=== PATIENT | female | born 1940 | race Caucasian/White ===

== ENCOUNTER 2020-09-19 08:41 | Inpatient (IN) ==
[2020-09-19] MEDS ORDERED: Acetaminophen 325 MG TABLET PO PRN (21:41)
[2020-09-19] MEDS ORDERED: *HR* OxyCODONE Immed Rel 5 MG TABLET PO PRN (21:43)
[2020-09-19] MEDS: Triamcinolone Acet 0.1% CRM 15 GM TUBE TP SCH (22:52)
[2020-09-20] MEDS: *HR* Enoxaparin 40 MG/0.4 ML SYRINGE SQ SCH (02:14)
[2020-09-20 05:55] LABS: Basophils # 0.1 K/mcL (0.0-0.2); Basophils % 0.4 %; Eosinophils # 0.4 K/mcL (0.0-0.6); Eosinophils % 2.9 %; Hematocrit 26.1 % (35.3-44.9); Hemoglobin 8.5 g/dL (11.5-15.4); Immature Granulocytes % 1.9 % (0-4); Lymphocytes # 2.6 K/mcL (0.6-4.6); Lymphocytes % 19.5 %; Mean Corpuscular HGB Conc 32.6 g/dL (31.6-35.5); Mean Corpuscular Hemoglobin 29.8 pg (28.0-33.3); Mean Corpuscular Volume 91.6 fL (83.0-100.0); Monocytes # 1.2 K/mcL (0.0-1.3); Monocytes % 9.4 %; Neutrophils # 8.7 K/mcL (1.6-8.9); Platelet Count 358 K/mcL (140-400); Red Blood Count 2.85 M/mcL (3.82-4.97); Red Cell Distribution Width 14.1 % (11.5-14.5); Segmented Neutrophils % 65.9 %; White Blood Count 13.2 K/mcL (4.3-11.1)
[2020-09-20 06:10] LABS: BUN/Creatinine Ratio 34 (6-26); Blood Urea Nitrogen 28 mg/dL (8-23); Calcium 8.2 mg/dL (8.6-10.3); Carbon Dioxide 28 mEq/L (23-29); Chloride 106 mEq/L (98-107); Glucose 94 mg/dL (70-105); Osmolality,Calculated 293 (280-300); Potassium 4.4 mEq/L (3.5-5.1); Sodium 139 mEq/L (136-145); eGFR For African Americans > 60 (> 60); eGFR For Non-African Americans > 60 (> 60)
[2020-09-20] MEDS ORDERED: Aspirin Enteric Coated 325 MG Tablet PO SCH (09:00)
[2020-09-20] MEDS: amLODIPine 5 MG TABLET PO SCH (09:52)
[2020-09-20] MEDS: COD LIVER OIL PO SCH (09:52)
[2020-09-20] MEDS: Cholecalciferol (D-3) 1,000 UNIT (25MCG) TABLET PO SCH (09:52)
[2020-09-20] MEDS: polyethylene glycoL 3350 17 GM POWD.PACK PO SCH (09:52)
[2020-09-20] MEDS: [UNRECOGNIZED DRUG - OTHER] PO SCH (09:53)
[2020-09-20] MEDS: Triamcinolone Acet 0.1% CRM 15 GM TUBE TP SCH ×2 (09:53→21:31)
[2020-09-20] MEDS: *HR* HYDROcodone/Acet 5/325 mg TABLET PO PRN ×2 (12:13→21:29)
[2020-09-21] MEDS: *HR* HYDROcodone/Acet 5/325 mg TABLET PO PRN ×3 (05:33→21:41)
[2020-09-21] MEDS: *HR* Enoxaparin 40 MG/0.4 ML SYRINGE SQ SCH (05:34)
[2020-09-21] MEDS: Triamcinolone Acet 0.1% CRM 15 GM TUBE TP SCH ×2 (09:31→21:41)
[2020-09-21] MEDS: amLODIPine 5 MG TABLET PO SCH (09:32)
[2020-09-21] MEDS: COD LIVER OIL PO SCH (09:33)
[2020-09-21] MEDS: polyethylene glycoL 3350 17 GM POWD.PACK PO SCH (09:33)
[2020-09-21] MEDS: [UNRECOGNIZED DRUG - OTHER] PO SCH (09:33)
[2020-09-21] MEDS: Cholecalciferol (D-3) 1,000 UNIT (25MCG) TABLET PO SCH (09:33)
[2020-09-22] MEDS: *HR* HYDROcodone/Acet 5/325 mg TABLET PO PRN ×2 (06:07→21:19)
[2020-09-22] MEDS: *HR* Enoxaparin 40 MG/0.4 ML SYRINGE SQ SCH (06:07)
[2020-09-22] MEDS: [UNRECOGNIZED DRUG - OTHER] PO SCH (08:09)
[2020-09-22] MEDS: COD LIVER OIL PO SCH (08:10)
[2020-09-22] MEDS: amLODIPine 5 MG TABLET PO SCH (08:44)
[2020-09-22] MEDS: Cholecalciferol (D-3) 1,000 UNIT (25MCG) TABLET PO SCH (08:44)
[2020-09-22] MEDS: polyethylene glycoL 3350 17 GM POWD.PACK PO SCH (08:44)
[2020-09-22] MEDS: Triamcinolone Acet 0.1% CRM 15 GM TUBE TP SCH ×2 (10:50→22:14)
[2020-09-23] MEDS: *HR* Enoxaparin 40 MG/0.4 ML SYRINGE SQ SCH (04:23)
[2020-09-23] MEDS: *HR* HYDROcodone/Acet 5/325 mg TABLET PO PRN ×3 (04:23→21:40)
[2020-09-23 06:14] LABS: Hematocrit 24.8 % (35.3-44.9); Mean Corpuscular HGB Conc 32.3 g/dL (31.6-35.5); Mean Corpuscular Hemoglobin 29.7 pg (28.0-33.3); Mean Corpuscular Volume 92.2 fL (83.0-100.0); Mean Platelet Volume 9.8 fL (9.4-12.4); Platelet Count 413 K/mcL (140-400); Red Blood Count 2.69 M/mcL (3.82-4.97); White Blood Count 12.3 K/mcL (4.3-11.1)
[2020-09-23 06:37] LABS: BUN/Creatinine Ratio 36 (6-26); Blood Urea Nitrogen 29 mg/dL (8-23); Calcium 8.3 mg/dL (8.6-10.3); Carbon Dioxide 28 mEq/L (23-29); Chloride 105 mEq/L (98-107); Glucose 102 mg/dL (70-105); Magnesium 1.9 mg/dL (1.6-2.6); Osmolality,Calculated 292 (280-300); Potassium 3.9 mEq/L (3.5-5.1); Sodium 138 mEq/L (136-145); eGFR For African Americans > 60 (> 60); eGFR For Non-African Americans > 60 (> 60)
[2020-09-23] MEDS: amLODIPine 5 MG TABLET PO SCH (08:31)
[2020-09-23] MEDS: Cholecalciferol (D-3) 1,000 UNIT (25MCG) TABLET PO SCH (08:31)
[2020-09-23] MEDS: polyethylene glycoL 3350 17 GM POWD.PACK PO SCH (08:32)
[2020-09-23] MEDS: Triamcinolone Acet 0.1% CRM 15 GM TUBE TP SCH ×2 (08:36→21:40)
[2020-09-23] MEDS: [UNRECOGNIZED DRUG - OTHER] PO SCH (08:39)
[2020-09-23] MEDS: COD LIVER OIL PO SCH (08:39)
[2020-09-23 13:20] LABS: % Iron Saturation 18 % (15-50); Iron 44 mcg/dL (50-170); Transferrin 178 mg/dL (203-362)
[2020-09-23 13:46] LABS: Folate 17.6 ng/mL (3.0-16.0)
[2020-09-24] MEDS: *HR* HYDROcodone/Acet 5/325 mg TABLET PO PRN ×2 (06:26→21:14)
[2020-09-24] MEDS: *HR* Enoxaparin 40 MG/0.4 ML SYRINGE SQ SCH (06:27)
[2020-09-24] MEDS: amLODIPine 5 MG TABLET PO SCH (08:06)
[2020-09-24] MEDS: polyethylene glycoL 3350 17 GM POWD.PACK PO SCH (08:06)
[2020-09-24] MEDS: Cholecalciferol (D-3) 1,000 UNIT (25MCG) TABLET PO SCH (08:07)
[2020-09-24] MEDS: Triamcinolone Acet 0.1% CRM 15 GM TUBE TP SCH ×2 (08:07→21:14)
[2020-09-24] MEDS: COD LIVER OIL PO SCH (10:12)
[2020-09-24] MEDS: [UNRECOGNIZED DRUG - OTHER] PO SCH (10:12)
[2020-09-24] MEDS ORDERED: Hydrocortisone 1% OINT 28 GM TUBE TP PRN (10:36)
[2020-09-24] MEDS ORDERED: NON-FORMULARY MEDICATION 1 EACH EACH (Alendronate Sodium [Fosamax] 70 MG Tablet) PO SCH (19:12)
[2020-09-25] MEDS: *HR* Enoxaparin 40 MG/0.4 ML SYRINGE SQ SCH (05:57)
[2020-09-25] MEDS: *HR* HYDROcodone/Acet 5/325 mg TABLET PO PRN ×3 (07:50→19:03)
[2020-09-25] MEDS: Cholecalciferol (D-3) 1,000 UNIT (25MCG) TABLET PO SCH (07:50)
[2020-09-25] MEDS: polyethylene glycoL 3350 17 GM POWD.PACK PO SCH (07:50)
[2020-09-25] MEDS: COD LIVER OIL PO SCH (07:51)
[2020-09-25] MEDS: amLODIPine 5 MG TABLET PO SCH (07:51)
[2020-09-25] MEDS: [UNRECOGNIZED DRUG - OTHER] PO SCH (07:51)
[2020-09-25] MEDS: Triamcinolone Acet 0.1% CRM 15 GM TUBE TP SCH ×2 (07:51→21:39)
[2020-09-26] MEDS: *HR* HYDROcodone/Acet 5/325 mg TABLET PO PRN ×4 (05:21→20:41)
[2020-09-26] MEDS: *HR* Enoxaparin 40 MG/0.4 ML SYRINGE SQ SCH (05:22)
[2020-09-26] MEDS: polyethylene glycoL 3350 17 GM POWD.PACK PO SCH (09:39)
[2020-09-26] MEDS: Cholecalciferol (D-3) 1,000 UNIT (25MCG) TABLET PO SCH (09:39)
[2020-09-26] MEDS: amLODIPine 5 MG TABLET PO SCH (09:39)
[2020-09-26] MEDS: Triamcinolone Acet 0.1% CRM 15 GM TUBE TP SCH ×2 (09:43→21:48)
[2020-09-26] MEDS: COD LIVER OIL PO SCH (10:26)
[2020-09-26] MEDS: [UNRECOGNIZED DRUG - OTHER] PO SCH (10:26)
[2020-09-27] MEDS: *HR* Enoxaparin 40 MG/0.4 ML SYRINGE SQ SCH (05:01)
[2020-09-27] MEDS: *HR* HYDROcodone/Acet 5/325 mg TABLET PO PRN ×3 (05:03→21:09)
[2020-09-27] MEDS: COD LIVER OIL PO SCH (08:23)
[2020-09-27] MEDS: Triamcinolone Acet 0.1% CRM 15 GM TUBE TP SCH ×2 (08:23→21:12)
[2020-09-27] MEDS: polyethylene glycoL 3350 17 GM POWD.PACK PO SCH (08:23)
[2020-09-27] MEDS: [UNRECOGNIZED DRUG - OTHER] PO SCH (08:23)
[2020-09-27] MEDS: Cholecalciferol (D-3) 1,000 UNIT (25MCG) TABLET PO SCH (08:25)
[2020-09-27] MEDS: amLODIPine 5 MG TABLET PO SCH (08:25)
[2020-09-28] MEDS: *HR* HYDROcodone/Acet 5/325 mg TABLET PO PRN ×3 (05:47→18:39)
[2020-09-28] MEDS: Cholecalciferol (D-3) 1,000 UNIT (25MCG) TABLET PO SCH (05:48)
[2020-09-28] MEDS: amLODIPine 5 MG TABLET PO SCH (05:48)
[2020-09-28] MEDS: *HR* Enoxaparin 40 MG/0.4 ML SYRINGE SQ SCH (05:50)
[2020-09-28] MEDS: Triamcinolone Acet 0.1% CRM 15 GM TUBE TP SCH ×2 (05:52→22:25)
[2020-09-28] MEDS: [UNRECOGNIZED DRUG - OTHER] PO SCH (05:52)
[2020-09-28] MEDS: polyethylene glycoL 3350 17 GM POWD.PACK PO SCH (05:52)
[2020-09-28] MEDS: COD LIVER OIL PO SCH (05:52)
[2020-09-28 19:27] VITALS: O2SAT 95
[2020-09-29] MEDS: *HR* HYDROcodone/Acet 5/325 mg TABLET PO PRN ×2 (03:25→08:24)
[2020-09-29] MEDS: *HR* Enoxaparin 40 MG/0.4 ML SYRINGE SQ SCH (05:22)
[2020-09-29 06:19] LABS: Hematocrit 28.3 % (35.3-44.9); Hemoglobin 8.9 g/dL (11.5-15.4); Mean Corpuscular HGB Conc 31.4 g/dL (31.6-35.5); Mean Corpuscular Volume 95.3 fL (83.0-100.0); Mean Platelet Volume 9.9 fL (9.4-12.4); Platelet Count 455 K/mcL (140-400); Red Blood Count 2.97 M/mcL (3.82-4.97); Red Cell Distribution Width 16.9 % (11.5-14.5); White Blood Count 10.9 K/mcL (4.3-11.1)
[2020-09-29 08:10] VITALS: PULSE 72; RESP 16; TEMP 98.2
[2020-09-29 08:14] LABS: BUN/Creatinine Ratio 43 (6-26); Blood Urea Nitrogen 32 mg/dL (8-23); Carbon Dioxide 26 mEq/L (23-29); Chloride 105 mEq/L (98-107); Glucose 97 mg/dL (70-105); Osmolality,Calculated 295 (280-300); Potassium 4.2 mEq/L (3.5-5.1); Sodium 139 mEq/L (136-145); eGFR For African Americans > 60 (> 60); eGFR For Non-African Americans > 60 (> 60)
[2020-09-29] MEDS: amLODIPine 5 MG TABLET PO SCH (08:23)
[2020-09-29] MEDS: Cholecalciferol (D-3) 1,000 UNIT (25MCG) TABLET PO SCH (08:23)
[2020-09-29] MEDS: polyethylene glycoL 3350 17 GM POWD.PACK PO SCH (08:24)
[2020-09-29] MEDS: COD LIVER OIL PO SCH (08:25)
[2020-09-29 08:29] VITALS: BP 124/77
[2020-09-29] MEDS: [UNRECOGNIZED DRUG - OTHER] PO SCH (10:59)
== END 2020-09-29 12:12 | disposition home health service (06) | DRG 561 ==
LOC: INPGRE 21:34
PROVIDERS: ADMIT Family Medicine; ATTEND Family Medicine